=== PATIENT | female | born 1975 | race Caucasian/White ===

== ENCOUNTER → 2017-04-09 | Day surgery (SDC) | payer BC ==
[~2017-04-09] MED LIST: Lactated Ringers 1,000 ML IV SCH
[2017-04-09 12:09] VITALS: BP 146/79
== END ==
LOC: CC.SDS 12:24
PROVIDERS: ATTEND Family Medicine
DX: D17.1 Benign lipomatous neoplasm of skin and subcutaneous tissue of trunk (principal); Z53.8 Procedure and treatment not carried out for other reasons; J45.901 Unspecified asthma with (acute) exacerbation; K21.9 Gastro-esophageal reflux disease without esophagitis; F32.9 Major depressive disorder, single episode, unspecified; Z88.8 Allergy status to other drugs, medicaments and biological substances; Z79.899 Other long term (current) drug therapy; F17.210 Nicotine dependence, cigarettes, uncomplicated
CPT/HCPCS: 36415; 84703; J7120

== ENCOUNTER → 2017-04-30 | Day surgery (SDC) | payer BC ==
[~2017-04-30] MED LIST changes: +Propofol 200 MG/20 ML SDV IV ONE
[2017-04-30 11:36] VITALS: BP 130/70
--- NOTE | 2017-04-30 15:15 | OR ---
DATE OF OPERATION: 04/30/2017 PREOPERATIVE DIAGNOSIS: 1. CHRONIC GASTROESOPHAGEAL REFLUX DISEASE. 2. DYSPHAGIA. POSTOPERATIVE DIAGNOSIS: 1. CHRONIC GASTROESOPHAGEAL REFLUX DISEASE. 2. DYSPHAGIA. SURGEON: Fei Madrid MD PROCEDURE: ESOPHAGOGASTRODUODENOSCOPY WITH BIOPSIES X3, MOE. ANESTHESIA: SACK CLEANER due to chronic reflux and obesity. COMPLICATIONS: None. SPECIMEN: 1. Duodenal biopsy x1. 2. Antral biopsy x2. 3. MOE. FINDINGS: 1. Full-length EGD. 2. Hiatal hernia with chronic GERD and no esophagitis. 3. Nonobstructing Schatzki's ring. 4. No Gilliam's changes. 5. Mild duodenitis of the bulb. RECOMMENDATIONS: The patient will be placed on proton pump therapy and will have a close followup with Yasmine Moreno. INDICATIONS: The patient has been having some persistent reflux symptoms and occasional dysphagia, Yasmine sent her for EGD. DESCRIPTION OF PROCEDURE: The patient was prepped and draped, placed in the left lateral decubitus position. A lubricated Olympus gastroscope was inserted and easily intubated in the esophagus. Esophageal lining was benign in its entire course. The Z-line was crisp and sharp around 36 cm. There was a hiatal hernia present with a nonobstructing Schatzki ring. No Gilliam's changes stricturing or ulcerations were seen or signs of esophagitis. The scope was advanced into the stomach through the pylorus and the second portion of the duodenum. This and the duodenal bulb were evaluated thoroughly. Duodenal bulb showed some signs of mild duodenitis without ulceration, biopsy was taken. The scope was brought back into the stomach and retroflexed. The upper fundus and cardia were essentially unremarkable other than the hernia visualized from below. A thorough evaluation the rest of the stomach lining showed some very mild distal and gastritis of the antrum without ulceration or erosion. Two biopsies of the antrum were taken along with a MOE test. Air was suctioned from the stomach and the scope removed without complication. FABIANO/LILY /[id number]
== END ==
LOC: CC.SDS 09:00
PROVIDERS: ATTEND Family Medicine
DX: K44.9 Diaphragmatic hernia without obstruction or gangrene (principal); K29.80 Duodenitis without bleeding; K22.2 Esophageal obstruction; K21.9 Gastro-esophageal reflux disease without esophagitis; F32.9 Major depressive disorder, single episode, unspecified; J45.909 Unspecified asthma, uncomplicated; Z88.1 Allergy status to other antibiotic agents; Z88.8 Allergy status to other drugs, medicaments and biological substances; Z79.899 Other long term (current) drug therapy; F17.210 Nicotine dependence, cigarettes, uncomplicated
CPT/HCPCS: 36415; 43239; 77067; 84703; 87081; J2704; J7120

== ENCOUNTER 2019-07-26 17:28 | Emergency (ER) | payer BC ==
[2019-07-26 17:33] VITALS: BP 137/82; PULSE 91
--- NOTE | 2019-07-26 18:05 | EDM.PDOC ---
ED HPI GENERAL MEDICAL PROBLEM - General Chief Complaint: Abdominal Pain Stated Complaint: RLQ abd pain Time Seen by Provider: 07/26/19 17:52 Source of Information: Reports: Patient History Limitations: Reports: No Limitations - History of Present Illness INITIAL COMMENTS - FREE TEXT/NARRATIVE: Patient presents to ER with complaints of right lower quadrant pain. States started approximately 2 1/2 hours ago, was very intense. When arrived to the ER , nurse reports patient was pacing and sweaty. She now states the pain is down to a 1 and wonders if she passed a kidney stone. Has had stones in the past, felt very similar. now has low grade pain in her right lower quadrant and her right flank. Has not noted any fevers. No nausea or vomiting. No blood in urine. Relates that she did not show blood in her urine last time until the kidney stone had passed. Last LMP 06-13-2019. Has history of heavy irregular cycles. Has not been sexually active for years. No constipation or diarrhea. Onset: Today, Sudden Duration: Hour(s):, Waxing/Waning Location: Reports: Abdomen Quality: Reports: Sharp, Stabbing Severity: Moderate Associated Symptoms: Denies: Cough, Fever/Chills, Loss of Appetite, Nausea/ Vomiting, Shortness of Breath Treatments JET MAN: Reports: NSAIDS Right Lower Abdominal Pain Score (Numeric/FACES): 6 - Related Data Allergies Allergy/AdvReac Type Severity Reaction Status Date / Time levofloxacin [From Levaquin] Allergy Cannot Verified 07/26/19 17:42 Remember morphine Allergy Cannot Verified 07/26/19 17:42 Remember Home Meds: Home Meds Albuterol [Ventolin HFA] 2 puff INH Q4H PRN 12/11/15 [History] Albuterol/Ipratropium [DuoNeb 3.0-0.5 MG/3 ML] 3 ml NEB Q4HRRT PRN 12/11/15 [ History] Biotin 300 mcg PO DAILY 12/11/15 [History] Cholecalciferol (Vitamin D3) [Vitamin D3] 1,000 units PO DAILY 12/11/15 [History ] Escitalopram Oxalate 20 mg PO DAILY 12/11/15 [History] Montelukast [Singulair] 10 mg PO BEDTIME 12/11/15 [History] Multivitamin [Daily Multiple Vitamin] 1 tab PO DAILY 12/11/15 [History] Triamcinolone Acetonide [Nasacort] 2 spray NS DAILY 12/11/15 [History] buPROPion HCl [Wellbutrin Xl] 300 mg PO DAILY 12/11/15 [History] traZODone HCl [Trazodone HCl] 100 mg PO BEDTIME 12/11/15 [History] Fluticasone/Salmeterol [Advair 250-50 Diskus] 1 puff INH DAILY 04/08/17 [History ] Ca Carb & Gluc/Mag Ox & Gluc [Calcium Magnesium Caplet] 1 tab PO DAILY 07/26/19 [History] Zinc 1 tab PO DAILY 07/26/19 [History] Past Medical History Respiratory History: Reports: Asthma Genitourinary History: Reports: Renal Calculus Endocrine/Metabolic History: Reports: Diabetes, Type II - Past Surgical History GI Surgical History: Reports: Cholecystectomy Female Surgical History: Reports: Section Social & Family History - Family History Family Medical History: Noncontributory - Tobacco Use Smoking Status *Q: Never Smoker - Recreational Drug Use Recreational Drug Use: No ED ROS GENERAL - Review of Systems Review Of Systems: See Below Constitutional: Denies: Fever, Chills, Malaise, Weakness, Decreased Appetite HEENT: Reports: No Symptoms Respiratory: Denies: Shortness of Breath, Cough Cardiovascular: Denies: Chest Pain, Edema, Lightheadedness Endocrine: Denies: Fatigue GI/Abdominal: Reports: Abdominal Pain, Nausea. Denies: Vomiting : Reports: Flank Pain. Denies: Hematuria Musculoskeletal: Reports: No Symptoms Skin: Reports: No Symptoms Neurological: Reports: No Symptoms ED EXAM, GI/ABD - Physical Exam Exam: See Below Exam Limited By: No Limitations General Appearance: Alert, WD/WN, No Apparent Distress Ears: Normal External Exam, Normal TMs Nose: Normal Inspection, Normal Mucosa, No Blood Throat/Mouth: Normal Inspection, Normal Oropharynx Head: Normocephalic Neck: Normal Inspection, Supple, Non-Tender Respiratory/Chest: No Respiratory Distress, Lungs Clear, Normal Breath Sounds Cardiovascular: Regular Rate, Rhythm GI/Abdominal Exam: Normal Bowel Sounds, Soft, Tender (RLQ) Extremities: Normal Inspection, No Pedal Edema Neurological: Alert, Oriented Skin Exam: Warm, Dry Course - Vital Signs Last Recorded V/S: Last Vital Signs Temp 99.1 F 07/26/19 17:29 Pulse 91 07/26/19 17:29 Resp 18 07/26/19 17:29 BP 137/82 07/26/19 17:29 Pulse Ox 100 07/26/19 17:29 - Orders/Labs/Meds Orders: Active Orders 24 hr Category Date Time Status C-REACTIVE PROTEIN [CHEM] Stat Lab 07/26/19 17:37 Ordered CBC WITH AUTO DIFF [HEME] Stat Lab 07/26/19 17:37 Ordered COMPREHENSIVE METABOLIC PN,CMP [CHEM] Stat Lab 07/26/19 17:37 Ordered UA W/MICROSCOPIC [URIN] Stat Lab 07/26/19 17:37 Ordered - Re-Assessments/Exams Free Text/Narrative Re-Assessment/Exam: 07/26/19 18:45 Labs show mildly elevated WBC, CRP 1.1. Occasional WBC and bacteria in urine. Flat and upright negative. CT scan to rule out stone done. Radiologist notes mild lymphadenitis, possible mesenteric adenitis. Appendix negative. No presence of stone. Discussed with patient. Is pain free at present. Will finish liter of fluids. Departure - Departure Time of Disposition: 18:46 Disposition: Home, Self-Care 01 Condition: Good Clinical Impression: Mesenteric adenitis - Discharge Information *PRESCRIPTION DRUG MONITORING PROGRAM REVIEWED*: No *COPY OF PRESCRIPTION DRUG MONITORING REPORT IN PATIENT MARK: No Referrals: Berkley Moreno PA [Primary Care Provider] - Additional Instructions: 1. Push fluids. 2. Ibuprofen or tylenol for discomfort 3. If pain increases, become febrile or have persisting concerns, call or return for further evaluation. Sepsis Event Note - Evaluation Sepsis Screening Result: No Definite Risk - Focused Exam Vital Signs: Vital Signs Temp Pulse Resp BP Pulse Ox 07/26/19 17:29 99.1 F 91 18 137/82 100 Date Exam was Performed: 07/26/19 Time Exam was Performed: 17:55 - My Orders Last 24 Hours: My Active Orders 07/26/19 17:37 C-REACTIVE PROTEIN [CHEM] Stat CBC WITH AUTO DIFF [HEME] Stat COMPREHENSIVE METABOLIC PN,CMP [CHEM] Stat UA W/MICROSCOPIC [URIN] Stat - Assessment/Plan Last 24 Hours: My Active Orders 07/26/19 17:37 C-REACTIVE PROTEIN [CHEM] Stat CBC WITH AUTO DIFF [HEME] Stat COMPREHENSIVE METABOLIC PN,CMP [CHEM] Stat UA W/MICROSCOPIC [URIN] Stat
[2019-07-26] MEDS ORDERED: Ketorolac 30 MG/ML SDV IVPUSH ONE (18:11)
[2019-07-26] MEDS ORDERED: Lactated Ringers 1,000 ML IV ONE (18:11)
[2019-07-26] MEDS ORDERED: Sulfamethoxazole/Trimethoprim 800-160 MG Tab PO ONE (18:48)
== END 2019-07-26 19:30 | disposition home or self-care (01) ==
LOC: CC.ED 17:28
DX: I88.0 Nonspecific mesenteric lymphadenitis (principal); Z88.1 Allergy status to other antibiotic agents; Z88.5 Allergy status to narcotic agent; J45.909 Unspecified asthma, uncomplicated; E11.9 Type 2 diabetes mellitus without complications; Z79.899 Other long term (current) drug therapy
CPT/HCPCS: 36415; 74019; 74176; 80053; 81001; 85025; 86140; 96361; 96374; 99284-25; A9270-GY; J1885; J7120

== ENCOUNTER 2025-01-26 06:41 | Day surgery (SDC) | payer BC ==
[2025-01-26] MEDS: Lactated Ringers 1,000 ML IV SCH (07:07)
[2025-01-26] MEDS ORDERED: fentaNYL 50 MCG/ML SDV ONE (07:27)
[2025-01-26] MEDS ORDERED: Ketamine 200 MG/20 ML MDV ONE (07:27)
[2025-01-26] MEDS ORDERED: Propofol 200 MG/20 ML SDV ONE (07:27)
[2025-01-26 09:08] VITALS: BP 100/65; PULSE 57
== END 2025-01-26 08:55 ==
LOC: CC.SDS 06:41
PROVIDERS: ATTEND Family Medicine
DX: Z12.11 Encounter for screening for malignant neoplasm of colon (principal); D12.3 Benign neoplasm of transverse colon; D12.7 Benign neoplasm of rectosigmoid junction; K63.5 Polyp of colon; K57.30 Diverticulosis of large intestine without perforation or abscess without bleeding; E78.5 Hyperlipidemia, unspecified; E66.01 Morbid (severe) obesity due to excess calories; Z88.8 Allergy status to other drugs, medicaments and biological substances; Z88.5 Allergy status to narcotic agent; Z68.34 Body mass index [BMI] 34.0-34.9, adult; Z79.899 Other long term (current) drug therapy
CPT/HCPCS: 00811; 45380; 45385; J2704; J3010; J3490; J7120